=== PATIENT | female | born 1980 | race Caucasian/White ===

== ENCOUNTER 2016-12-06 11:21 | Outpatient (CLI) | payer MEDICAID | END 2016-12-06 12:07 | disposition home or self-care (01) | LOC: LC 11:21 | PROVIDERS: ATTEND Obstetrics & Gynecology | PROC: 4A1HXCZ Monitoring of Products of Conception, Cardiac Rate, External Approach (ICD-10-PCS; principal; 2016-12-06) | DX: O09.529 Supervision of elderly multigravida, unspecified trimester (principal); Z3A.00 Weeks of gestation of pregnancy not specified | CPT/HCPCS: 59025 ==

== ENCOUNTER 2016-12-28 21:50 | Inpatient (IN) | payer MEDICAID ==
[2016-12-28] MEDS ORDERED: OXYTOCIN/NORMAL SALINE 20 UNIT/1,000 ML RTUINJ ONE (22:14)
[2016-12-28] MEDS ORDERED: LIDOCAINE 1% INJ-PF (10 MG/ML) 30 ML SDV ONE (22:14)
[2016-12-28] MEDS ORDERED: MISOPROSTOL 0.2 MG TABLET ONE (22:14)
[2016-12-28] MEDS ORDERED: BUPIVACAINE HCL 0.25 % INJ/PF (2.5 MG/1 ML) 30 ML VIAL ONE (22:14)
[2016-12-28] MEDS ORDERED: FENTANYL/BUPIVACAINE/NS/PF 200 MCG/100 ML RTUINJ EPI ONE (22:14)
[2016-12-28] MEDS ORDERED: EPHEDRINE SULFATE INJ 50 MG/1 ML AMPULE ONE (22:14)
[2016-12-28 22:16] LABS: APPEARANCE,URINE CLOUDY; BILIRUBIN,URINE NEGATIVE (NEGATIVE); GLUCOSE, URINE NEGATIVE (NEGATIVE); KETONES,URINE NEGATIVE (NEGATIVE); LEUKOCYTE ESTERASE,URINE MODERATE (NEGATIVE); NITRITE,URINE NEGATIVE (NEGATIVE); PROTEIN,URINE 30 mg/dL (NEGATIVE); URINE SPECIFIC GRAVITY 1.011; UROBILINOGEN,URINE NEGATIVE mg/dL (<2.0)
[2016-12-28 22:32] LABS: URINE BARBITURATES SCREEN NEGATIVE; URINE METHADONE SCREEN NEGATIVE; URINE OPIATES LOW NEGATIVE; URINE PHENCYCLIDINE SCREEN NEGATIVE
[2016-12-28 22:46] LABS: ABSOLUTE EOSINOPHILS # (AUTO) 0.1 10^3/uL (0.0-0.6); ABSOLUTE LYMPHOCYTES (AUTO) 2.3 10^3/uL (0.5-4.7); ABSOLUTE MONOCYTES (AUTO) 0.8 10^3/uL (0.1-1.4); ABSOLUTE NEUT (AUTO) 11.8 10^3/uL (1.7-8.2); BASOPHILS % (AUTO) 0.3 % (0-2); EOSINOPHILS % (AUTO) 0.6 % (0-6); HEMATOCRIT 41.3 % (36.0-47.0); HEMOGLOBIN 14.3 g/dL (12.0-15.5); HGB HCT DIFFERENCE 1.6; LYMPHOCYTES % (AUTO) 15.1 % (13-45); MEAN CORPUSCULAR HEMOGLOBIN 29.4 pg (27.0-33.4); MEAN CORPUSCULAR HGB CONC 34.6 g/dL (32.0-36.0); MEAN CORPUSCULAR VOLUME 85 fl (80-97); MONOCYTES % (AUTO) 5.5 % (3-13); RED BLOOD COUNT 4.86 10^6/uL (3.72-5.28); SEGMENTED NEUTROPHILS % (AUTO) 78.5 % (42-78)
--- NOTE | 2016-12-29 00:14 | L&D Progress Notes ---
PROGRESS NOTES Datetime Report Generated by CPN: 12/29/2016 00:14 PROGRESS NOTE Impression: Normal Progression of Labor Procedures: Sterile Vag Exam Plan: Continue Present Management Informed Consent Obtained: Vaginal Delivery Informed Consent Obtained: Vaginal Delivery; Risks, Benefits and Alternatives Discussed Vital Signs : Reviewed Comment: Comfortable with epidural Anticipate VAGINAL EXAM Dilatation: 9 Dilatation: 5 Effacement: 90 Effacement: 80 Station: 0 Station: -1 Contractions: 2-3 Contractions: q 2-3 MEMBRANES Membranes: Ruptured Membranes: Ruptured Amniotic Fluid Color: Clear FETUS A FHR - Baseline: 125 Monitoring: External US Variability: Moderate 6-25bpm Decelerations: None FHR Category: Category I Presentation: Vertex SIGNATURE SIGNATURE: [id number] Assignment: Fatimah Witt MD Signature: with User ID: [email or web address] : with User ID: [email or web address]
[2016-12-29] MEDS ORDERED: BENZOCAINE/MENTHOL AEROSOL SPRAY 56 ML TOP PRN (00:39)
[2016-12-29] MEDS ORDERED: DIBUCAINE 1% OINTMENT 28 GM TP PRN (00:39)
[2016-12-29] MEDS ORDERED: DIPH/PERTUSS(ACELL)/TETANUS VAC/PF 0.5 ML SYR (>=10YO) IM PRN (00:39)
[2016-12-29] MEDS ORDERED: ZOLPIDEM TARTRATE 5 MG TABLET PO PRN (00:39)
[2016-12-29] MEDS ORDERED: MEASLES,MUMPS&RUBELLA VACC/PF 0.5 ML VIAL SUBCUT PRN (00:39)
[2016-12-29] MEDS ORDERED: OXYTOCIN/NORMAL SALINE 20,000 UNIT/1,000,000 ML RTUINJ IV PRN (00:39)
[2016-12-29] MEDS ORDERED: ACETAMINOPHEN WITH CODEINE #3 TABLET PO PRN (00:39)
[2016-12-29] MEDS ORDERED: IBUPROFEN 800 MG TABLET ONE (03:25)
[2016-12-29] MEDS: IBUPROFEN 800 MG TABLET PO SCH ×3 (03:27→22:02)
--- NOTE | 2016-12-29 04:10 | Admission Physical ---
Datetime Report Generated by CPN: 12/29/2016 04:09 CURRENT ADMISSION Hx Assessment: The History has been Reviewed and is Current Chief Complaint: Uterine Contractions; Suspected Ruptured Membranes Indication for Induction: Not Applicable Admit Plan: Admit to Unit; Initiate Labor Protocol ALLERGIES Medication Allergies: No Medication Allergies: No Known Allergies (09/06/2012) Latex: No Latex Allergies OBSTETRICAL HISTORY EDC: 01/15/2017 00:00 : 5 Para: 2 Term: 2 : 0 Gestational Diabetes: Yes Rh Sensitization: No Incompetent Cervix: No MARIA DEL CARMEN: No Infertility: No ART Treatment: No Uterine Anomaly: No IUGR: No Hx Previous C/S: No Macrosomia: No Hx Loss/Stillborn: No PIH: No Hx : No Placenta Previa/Abruption: No Depression/PP Depression: No PTL/PROM: No Post Hemorrhage: No Obstetrical History Comments: G1: 2005 G2: 2006 G3: 2008 40 week , GDM G4: 2012 37.1 week , GDM G5: current, GDM, possibly retained mirena SEE RECORDS Alcohol: No Marijuana : No Cocaine: No Other Illicit Drugs: No Cigarettes: Never Smoker. 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 Surgery: No Heart Disease: No Hosp/Surgery: No Autoimmune Disorder: No Anesthetic Complications: No Kidney Disease: No Abnormal Pap Smear: No Neuro/Epilepsy: No Psychiatric Disorders: No Other Medical Diseases: No Hepatitis/Liver Disease: No Significant Family History: No Varicosities/Phlebitis: No Trauma/Violence : No Thyroid Dysfunction: No Medical History Comments: uterine fibroid INFECTIOUS HISTORY Gonorrhea: No Genital Herpes: No Chlamydia: No Tuberculosis: No Syphilis: No Hepatitis: No HIV/AIDS Exposure: No Rash or Viral Illness: No HPV: No PHYSICAL EXAM General: Normal HEENT: Normal Neurologic: Normal Thyroid: Normal Heart: Normal Lungs: Normal Breast: Deferred Back: Normal Abdomen: Normal Genitourinary Exam: Normal Extremities: Normal DTRs: Normal Pelvic Type: Adequate Vital Signs: Reviewed VAGINAL EXAM Dilatation: 9 Dilatation: 5 Effacement: 90 Effacement: 80 Station: 0 Station: -1 Contraction Comments: 2-3 Contraction Comments: q 2-3 MEMBRANES Membranes: Ruptured Membranes: Ruptured Amniotic Fluid Color: Clear FETUS A EGA: 37.3 Monitoring: External US FHR- Baseline: 150 Variability: Moderate 6-25bpm Accelerations: 15X15 Decelerations: None FHR Category: Category I Presentation: Vertex Admit Comment: 36yo at 37+3ega presents for SROM at approx 1800 and uterine ctx. Cvx /-1. c/b A1GDM, poss fibroids, poss retained Mirena IUD- unable to find strings. GBS negative. Admit for PROM/SROM with clear fluid and labor. Anticiapte . Pelvis proven to 8#. REassuring FWB PLANS FOR LABOR AND DELIVERY Labor and Delivery: None Pain Management: Epidural Feeding Preference: Breast Benefit of Breast Feed Discussed: Yes Circumcision: N/A INFORMED CONSENT Informed Consent Obtained: Vaginal Delivery Informed Consent Obtained: Vaginal Delivery; Risks, Benefits and Alternatives Discussed Signature: with User ID: [email or web address]
--- NOTE | 2016-12-29 04:18 | Delivery Summary ---
Del Sum A-C Datetime Report Generated by CPN: 12/29/2016 04:18 DELIVERY PERSONNEL DELIVERY PERSONNEL: [id number] Delivery Doctor:: Ariane Jeffries CNM Labor and Delivery Nurse:: Neelam Cooper RNkitchen porter Nurse:: Ailyn Ramsey RN Manager Ems/STAMPING BENCH DIE MAKER: Sanya Solomon, STAMPING BENCH DIE MAKER MATERNAL INFORMATION Delivery Anesthesia: Epidural Medications After Delivery: Pitocin Bolus-Please Comment; Pitocin Drip 20 Units/1000ml NSS Estimated Blood Loss (ml): 200 Maternal Complications: Precipitous Labor (<3hrs) Provider Comments: of viable female infant, head delivered with compound hand, shoulders and body delivered without difficulty, infant with spontaneous cry and respirations, to maternal abodmen, cord clamped X2, after 2 min delay, infant cut free by pts , spontaneous delivery of placenta, appears intact, 3 VC, to pathology, vagina and perienum inspected, no lacerations noted, no evidence of IUD, hemostasis acheived with external fundal massage and IV pitocin, routine pp care LABOR SUMMARY EDC: 01/15/2017 00:00 Attempted: No Labor Anesthesia: Epidural LABOR INFORMATION Reason for Induction: Not Applicable Onset of Labor: 12/28/2016 18:00 Complete Dilatation: 12/29/2016 00:20 Oxytocin: N/A Group B Beta Strep: negative MEMBRANES Membranes Rupture Method: Spontaneous Rupture of Membranes: 12/28/2016 18:00 Length of Rupture (hr): 6.42 Amniotic Fluid Color: Clear Amniotic Fluid Amount: Scant Amniotic Fluid Odor: Normal STAGES OF LABOR Stage 1 hr: 6 Stage 1 min: 20 Stage 2 hr: 0 Stage 2 min: 5 Stage 3 hr: 0 Stage 3 min: 4 Total Time in Labor hr: 6 Total Time in Labor min: 29 VAGINAL DELIVERY Episiotomy: None Laceration Extension: N/A Laceration Type: None Laceration Repair: Not Applicable Laceration Repair Note: n/a CSECTION DELIVERY Primary Indication: N/A Secondary Indication: N/A CSection Incidence: N/A Labor: N/A Elective: N/A CSection Incision: N/A BABY A INFORMATION Infant Delivery Date/Time: 12/29/2016 00:25 Method of Delivery: Vaginal Born in Route : No : N/A Forceps: N/A Vacuum Extraction: N/A Shoulder Dystocia : No PRESENTATION/POSITION BABY A Presentation: Cephalic Cephalic Presentation: Vertex Vertex Position: Left Occipital Anterior Breech Presentation: N/A PLACENTA INFORMATION BABY A Placenta Delivery Time : 12/29/2016 00:29 Placenta Method of Delivery: Spontaneous Placenta Status: Delivered SCORES BABY A Heart Rate 1 min: >100 bpm Resp Effort 1 min: Good Cry Reflex Irritability 1 min: Cough or Sneeze or Pulls Away Muscle Tone 1 min: Active Motion Color 1 min: Body Og[place], Extremities Blue Resuscitation Effort 1 min: Tactile Stimulation SCORE 1 MIN: 9 Heart Rate 5 min: >100 bpm Resp Effort 5 min: Good Cry Reflex Irritability 5 min: Cough or Sneeze or Pulls Away Muscle Tone 5 min: Active Motion Color 5 min: Body [place], Extremities Blue SCORE 5 MIN: 9 INFORMATION BABY A Gestational Age at Delivery: 37.4 Gestational Status: Early Term- 37- 38.6 Weeks Outcome : Liveborn Condition : Stable Sex: Female IDENTIFICATION BABY A Infant Verification Date/Time: 12/29/2016 00:59 ID Band Number: [id number] Mother's Name Verified: Yes RN Verifying Infant: K Kenneth RN/ B Pena RN WEIGHT/LENGTH BABY A Infant Birthweight (gm): 2770 Infant Weight (lb): 6 Infant Weight (oz): 2 Length (in): 18.50 Infant Length (cm): 46.99 CORD INFORMATION BABY A No. Cord Vessels: 3 Nuchal Cord : N/A Nuchal Cord- Other: L compound hand Cord Blood Taken: Yes-For Storage (Mom's Blood type +) Suction: Mouth ASSESSMENT BABY A Skin to Skin: Yes Skin to Skin Time (min): 60 SIGNATURES Assignment: Fatimah Witt MD Signature: with User ID: Emily : with User ID: Emily
[2016-12-29] MEDS: DOCUSATE SODIUM 100 MG CAPSULE PO SCH ×2 (09:43→17:12)
[2016-12-29] MEDS: FERROUS SULFATE 325 MG TABLET PO SCH ×2 (09:44→17:12)
[2016-12-29] MEDS: ACETAMINOPHEN WITH CODEINE #3 TABLET PO PRN ×2 (09:44→20:20)
[2016-12-29] MEDS: PRENATAL VITAMIN W-O CA NO5/FE FUMARATE/FA CAPSULE PO SCH (09:45)
[2016-12-29] MEDS: SENNOSIDES/DOCUSATE 8.6-50 MG 1 EACH TABLET PO SCH (09:45)
--- NOTE | 2016-12-29 13:14 | PDOC PROGRESS REPORT ---
Subjective-OB Subjective: Post Delivery Day: 36 year old. Denies any needs at this time Physical Exam (OB) Vital Signs: Temp Pulse Resp BP Pulse Ox 97.3 F 68 17 113/87 H 100 12/29/16 07:28 12/29/16 07:28 12/29/16 07:28 12/29/16 07:28 12/29/16 07:28 - PIH/Pre-Eclampsia DTR's: 2 + Headache: Absent Epigastric Pain: No Visual Changes: No - Lochia Lochia Amount: Small 10-25 ml Lochia Color: Rubra/Red - Abdomen Description: Soft Bowel Sounds: Normoactive Flatus Presence: Present Stool: No Fundal Description: Firm, Midline Fundal Height: u/u - u/2 Objective-Diagnostic Laboratory: 12/28/16 22:30 12/28/16 12/28/16 12/28/16 22:00 22:30 22:30 WBC 15.0 H RBC 4.86 Hgb 14.3 Hct 41.3 MCV 85 MCH 29.4 MCHC 34.6 RDW 16.0 H Plt Count 294 Seg Neutrophils % 78.5 H Lymphocytes % 15.1 Monocytes % 5.5 Eosinophils % 0.6 Basophils % 0.3 Absolute Neutrophils 11.8 H Absolute Lymphocytes 2.3 Absolute Monocytes 0.8 Absolute Eosinophils 0.1 Absolute Basophils 0.0 Urine Color YELLOW Urine Appearance CLOUDY Urine pH 7.0 Ur Specific Coello 1.011 Urine Protein 30 H Urine Glucose (UA) NEGATIVE Urine Ketones NEGATIVE Urine Blood LARGE H Urine Nitrite NEGATIVE Ur Leukocyte Esterase MODERATE H Blood Type B POSITIVE Antibody Screen NEGATIVE
[2016-12-30] MEDS: IBUPROFEN 800 MG TABLET PO SCH ×3 (05:31→21:00)
[2016-12-30 08:15] LABS: HEMATOCRIT 40.3 % (36.0-47.0); HEMOGLOBIN 13.8 g/dL (12.0-15.5); HGB HCT DIFFERENCE 1.1; MEAN CORPUSCULAR HEMOGLOBIN 29.5 pg (27.0-33.4); MEAN CORPUSCULAR HGB CONC 34.3 g/dL (32.0-36.0); MEAN CORPUSCULAR VOLUME 86 fl (80-97); RED BLOOD COUNT 4.68 10^6/uL (3.72-5.28); RED CELL DISTRIBUTION WIDTH 16.3 % (11.5-14.0); WHITE BLOOD COUNT 14.3 10^3/uL (4.0-10.5)
[2016-12-30] MEDS: SENNOSIDES/DOCUSATE 8.6-50 MG 1 EACH TABLET PO SCH (09:40)
[2016-12-30] MEDS: DOCUSATE SODIUM 100 MG CAPSULE PO SCH ×2 (09:40→18:26)
[2016-12-30] MEDS: FERROUS SULFATE 325 MG TABLET PO SCH ×2 (09:41→18:26)
[2016-12-30] MEDS: PRENATAL VITAMIN W-O CA NO5/FE FUMARATE/FA CAPSULE PO SCH (09:41)
--- NOTE | 2016-12-30 11:49 | PDOC PROGRESS REPORT ---
Subjective-OB Subjective: Post Delivery Day: 36 year old. Denies any needs at this time. Pt reports light bleeding, regular diet, voiding without difficulty. She has no complaints. Physical Exam (OB) Vital Signs: Temp Pulse Resp BP Pulse Ox 97.9 F 86 15 122/78 98 12/30/16 08:05 12/30/16 08:05 12/30/16 08:05 12/30/16 08:05 12/30/16 08:05 Intake & Output 12/29/16 12/30/16 12/31/16 06:59 06:59 06:59 Intake Total 500 Balance 500 - Lochia Lochia Amount: Small 10-25 ml Lochia Color: Rubra/Red - Abdomen Description: Soft Hernia Present: No Fundal Description: Firm, Midline Fundal Height: u/u - u/2 Objective-Diagnostic Laboratory: 12/30/16 08:01 12/30/16 08:01 WBC 14.3 H RBC 4.68 Hgb 13.8 Hct 40.3 MCV 86 MCH 29.5 MCHC 34.3 RDW 16.3 H Plt Count 263 Assessment and Plan(PN) - Assessment and Plan (1) AMA (advanced maternal age) multigravida 35+ Is this a current diagnosis for this admission?: Yes (2) Delivery normal Is this a current diagnosis for this admission?: Yes - Time Spent with Patient Time with patient: Less than 15 minutes Smoking Education Provided: Over 3 minutes Medications reviewed and adjusted accordingly: Yes - Disposition Anticipated Discharge: Home Within: within 24 hours
--- NOTE | 2016-12-30 12:54 | RADIOLOGY REPORT (SQ) ---
EXAM DESCRIPTION: KUB/ABDOMEN (SINGLE VIEW) COMPLETED DATE/TIME: 12/30/2016 12:34 pm REASON FOR STUDY: rule out peritoneal IUD COMPARISON: None. NUMBER OF VIEWS: One view. TECHNIQUE: Supine radiographic image of the abdomen acquired. LIMITATIONS: None. FINDINGS: BOWEL GAS PATTERN: Normal bowel gas pattern. No dilated loops. CALCIFICATIONS: 6 cm partially calcified lesion left lower quadrant at level of proximal ureter. Thi s has a broad differential including calcified fibroids, granuloma, vascular etiology. SOFT TISSUES: See above. HARDWARE: None. BONES: No bone lesions or fracture. OTHER: No IUD identified. IMPRESSION: Partially calcified abdominal mass not further characterized. Consider follow-up CT.
[2016-12-31] MEDS: IBUPROFEN 800 MG TABLET PO SCH (05:22)
--- NOTE | 2016-12-31 08:53 | PDOC PROGRESS REPORT ---
Subjective-OB Subjective: Post Delivery Day: 36 year old. Denies any needs at this time Doing well, no c/o Physical Exam (OB) Vital Signs: Temp Pulse Resp BP Pulse Ox 98.3 F 96 18 124/83 99 12/30/16 19:12 12/30/16 19:12 12/30/16 19:12 12/30/16 19:12 12/30/16 19:12 Intake & Output 12/30/16 12/31/16 01/01/17 06:59 06:59 06:59 Intake Total 500 Balance 500 - PIH/Pre-Eclampsia DTR's: 2 + Headache: Absent Epigastric Pain: No Visual Changes: No - Lochia Lochia Amount: Scant < 10 ml Lochia Color: Rubra/Red - Abdomen Description: Tender, Soft, Round Hernia Present: No Fundal Description: Firm, Midline Fundal Height: u/u - u/2 Objective-Diagnostic Laboratory: 12/30/16 08:01 Assessment and Plan(PN) - Assessment and Plan (1) AMA (advanced maternal age) multigravida 35+ Qualifiers: Trimester: first trimester Qualified Code(s): O09.521 - Supervision of elderly multigravida, first trimester Is this a current diagnosis for this admission?: Yes (2) GDM (gestational diabetes mellitus) Qualifiers: Gestational diabetes mellitus control: diet-controlled Is this a current diagnosis for this admission?: Yes (3) Delivery normal Is this a current diagnosis for this admission?: Yes - Time Spent with Patient Smoking Education Provided: Over 3 minutes Medications reviewed and adjusted accordingly: Yes - Disposition Anticipated Discharge: Home Within: Other - home today
--- NOTE | 2016-12-31 08:55 | PDOC DISCHARGE SUMMARY ---
Final Diagnosis Discharge Date: 12/31/16 - Final Diagnosis (1) AMA (advanced maternal age) multigravida 35+ Is this a current diagnosis for this admission?: Yes (2) GDM (gestational diabetes mellitus) Is this a current diagnosis for this admission?: Yes (3) Delivery normal Is this a current diagnosis for this admission?: Yes Discharge Data - Discharge Medication Home Medications: Pnv W-O Ca No5/Fe Fumarate/FA [-U Multiple Vitamin Capsule] 1 cap PO DAILY 09/06/12 Gestational Age: 37.3 Reason(s) for Admission: Gestional Diabetes Procedures: NST, Ultrasound Intrapartum Procedure(s): Spontaneous Vaginal Delivery - Diagnosis Test Laboratory: Temp Pulse Resp BP Pulse Ox 98.3 F 96 18 124/83 99 12/30/16 19:12 12/30/16 19:12 12/30/16 19:12 12/30/16 19:12 12/30/16 19:12 12/28/16 12/28/16 12/30/16 22:00 22:30 08:01 RBC 4.86 4.68 Hgb 14.3 13.8 Hct 41.3 40.3 Urine Opiates Screen NEGATIVE - Discharge information/Instructions Discharge Activity: Activity As Tolerated, Balance Activity w/Rest, No Lifting Over 10 Pounds, No Lifting/Push/Pulling, Pelvic Rest, No tub bath Discharge Diet: As Tolerated, Regular Disposition: HOME, SELF-CARE Follow up with: [facility] in: 4, Weeks
[2016-12-31] MEDS: FERROUS SULFATE 325 MG TABLET PO SCH (09:11)
[2016-12-31] MEDS: PRENATAL VITAMIN W-O CA NO5/FE FUMARATE/FA CAPSULE PO SCH (09:11)
[2016-12-31] MEDS: DOCUSATE SODIUM 100 MG CAPSULE PO SCH (09:11)
[2016-12-31] MEDS: SENNOSIDES/DOCUSATE 8.6-50 MG 1 EACH TABLET PO SCH (09:11)
[2016-12-31 09:14] VITALS: BP 135/76
== END 2016-12-31 12:17 | disposition home or self-care (01) | DRG 775 ==
LOC: LC 21:50 → LR 22:12 → 2S 12-29 04:08
PROVIDERS: ADMIT Student in an Organized Health Care Education/Training Program; ATTEND Student in an Organized Health Care Education/Training Program
PROC: 10E0XZZ Delivery of Products of Conception, External Approach (ICD-10-PCS; principal; 2016-12-28)
PROC: 4A1HXCZ Monitoring of Products of Conception, Cardiac Rate, External Approach (ICD-10-PCS; 2016-12-28)
DX: O24.420 Gestational diabetes mellitus in childbirth, diet controlled (principal); O62.3 Precipitate labor; O32.6XX0 Maternal care for compound presentation, not applicable or unspecified; Z3A.37 37 weeks gestation of pregnancy; Z37.0 Single live birth
CPT/HCPCS: 36415; 74000; 80307; 81005; 85025; 85027; 86592; 86850; 86900; 86901; 88307; J2590; J3490

== ENCOUNTER 2017-04-21 16:25 | Emergency (ER) | payer MEDICAID, OTHER ==
--- NOTE | 2017-04-21 19:41 | ER Document Report ---
HPI - HPI Patient complains to provider of: Fell on ice today Onset: This afternoon - 12 noon Onset/Duration: Sudden Pain Level: 4 Context: 36-year-old right-handed female slipped on ice and fell on her left elbow proximal forearm while she was at work. It developed increased pain while she was working. It is to the proximal radius ulna volar forearm for the location of the pain. Associated Symptoms: None Exacerbated by: Movement Relieved by: Denies - REPRODUCTIVE LMP: unsure Reproductive: DENIES: : Past Medical History - General Information source: Patient - Social History Smoking Status: Never Smoker Frequency of alcohol use: None Drug Abuse: None Family History: Reviewed & Not Pertinent - Medical History Medical History: Negative Surgical Hx: Negative - Immunizations Hx Diphtheria, Pertussis, Tetanus Vaccination: Yes Vertical Provider Document - CONSTITUTIONAL Agree With Documented VS: Yes Exam Limitations: No Limitations General Appearance: No Apparent Distress - INFECTION CONTROL TRAVEL OUTSIDE OF THE [place] IN LAST 30 DAYS: No - HEENT HEENT: Normocephalic - NECK Neck: Supple - RESPIRATORY O2 Sat by Pulse Oximetry: 98 - MUSCULOSKELETAL/EXTREMETIES Musculoskeletal/Extremeties: MAEW, FROM, Tender - soft tissue distal posterior upper arm above the olecranon - NEURO Level of Consciousness: Awake, Alert, Appropriate Motor/Sensory: No Motor Deficit, No Sensory Deficit - DERM Integumentary: Warm, Dry Course - Re-evaluation Re-evalutation: 04/21/17 20:07 xray is negative per radiologist, - Vital Signs Vital signs: Temp Pulse Resp BP Pulse Ox 98.1 F 81 20 123/85 98 04/21/17 16:38 04/21/17 16:38 04/21/17 16:38 04/21/17 16:38 04/21/17 16:38 Discharge - Discharge Clinical Impression: Left elbow contusion Qualifiers: Encounter type: initial encounter Qualified Code(s): S50.02XA - Contusion of left elbow, initial encounter Condition: Good Disposition: HOME, SELF-CARE Instructions: Acetaminophen, Clifton Wrap ([facility]), Contusion ([facility]) Additional Instructions: clifton wrap for comfort to er any concerns copy of negative xray tylenol for pain since you are Forms: Return to Work
--- NOTE | 2017-04-21 20:04 | RADIOLOGY REPORT (SQ) ---
EXAM DESCRIPTION: ELBOW LEFT OVER 2 VIEWS COMPLETED DATE/TIME: 04/21/2017 7:57 pm REASON FOR STUDY: fell on ice COMPARISON: None. NUMBER OF VIEWS: Four views. TECHNIQUE: AP, lateral, and both oblique radiographic images acquired of the left elbow. LIMITATIONS: None. FINDINGS: MINERALIZATION: Normal. BONES: No acute fracture or dislocation. No worrisome bone lesions. JOINT: No effusion. SOFT TISSUES: No soft tissue swelling. No foreign body. OTHER: No other significant finding. IMPRESSION: NEGATIVE STUDY OF THE LEFT ELBOW. NO RADIOGRAPHIC EVIDENCE OF ACUTE INJURY. TECHNICAL DOCUMENTATION: JOB ID: [id number] [employer]- All Rights Reserved
[2017-04-21 20:24] VITALS: BP 117/83
== END 2017-04-21 20:27 | disposition home or self-care (01) ==
LOC: ER 16:25
DX: S50.02XA Contusion of left elbow, initial encounter (principal); W00.0XXA Fall on same level due to ice and snow, initial encounter; Y99.0 Civilian activity done for income or pay
CPT/HCPCS: 99283

== ENCOUNTER → 2020-05-11 | Outpatient (CLI) | payer SELFPAY ==
[~2020-05-11] MED LIST: COVID-19 VACCINE (PFIZER)/PF 30 MCG/0.3 ML VIAL IM ONE; EPINEPHRINE INJ/PF 1 MG/1 ML AMPULE IM PRN
== END ==
LOC: EMPHEALTH 13:58
PROVIDERS: ATTEND Internal Medicine
DX: Z23 Encounter for immunization (principal)
CPT/HCPCS: 91300